=== PATIENT | male | born 1970 | race Caucasian/White ===

== ENCOUNTER 2017-11-27 12:19 | Emergency (ER) | payer OTHER ==
--- NOTE | 2017-11-27 13:28 | EDPHY ---
H & P Stated Complaint: l knee swelling/since mon/x[place] Time Seen by Provider: 11/27/17 13:26 HPI/ROS: HPI: This is a 47-year-old male who presents with Chief Complaint: l knee swelling/since mon/xrays/[place] Location: Left knee Quality: Swelling Duration: 5 days Signs and Symptoms: No bleeding, no radiation, no numbness, no weakness, no tingling, no incontinence, + decreased range of motion, + swelling, + pain, no fever Timing: Worsening Severity: Moderate Context: Patient presents with complaints of left knee swelling, decreased range of motion and pain that started Thursday. Thursday he used the treadmill without any difficulty or pain. Thursday he went for a walk with his . Thursday he woke up with constant, mild, aching generalized left knee pain with mild swelling. He is able to bear weight without any pain. Flexion increases his pain. History of gout controlled by diet and herbal supplement. Reports that this feels different than gout flare. Thursday he went to the urgent care and in [place]; x-rays performed and per patient did not show any fracture/ dislocation/significant degenerative changes. Patient reports that they attempted aspiration and it was unsuccessful. Denies fever/weakness/ paresthesias. Modifying Factors: See above Comment: ROS: see HPI Constitutional: No fever, no chills, no weight loss Eyes: No blurred vision Respiratory: No shortness of breath, no cough Cardiovascular: No chest pain Gastrointestinal: No nausea, no vomiting no diarrhea Genitourinary: No dysuria Extremities: No myalgias Neurologic: No weakness, no numbness Skin: No rashes Hematologic: No bruising, no bleeding MEDICAL/SURGICAL/SOCIAL HISTORY: Medical history: Gout. Does not take any regular medications. Surgical history: Denies Social history: . Employed. CONSTITUTIONAL: Polite and cooperative middle-aged white male, nontoxic in appearance, awake and alert, no obvious distress HEENT: Atraumatic and normocephalic. NECK: supple, no midline tenderness, flexion 45 degrees, extension 45 degrees, right and left lateral flexion 45 degrees. No meningismus. Cardiovascular: Normal S1/S2, regular rate, regular rhythm, without murmur rub or gallop. PULMONARY/CHEST: Symmetrical and nontender. no crepitus. Clear to auscultation bilaterally. Good air movement. No accessory muscle usage. ABDOMEN: Soft, nondistended, nontender, no ecchymosis. PELVIC: no pain with rocking; bilateral hips flexion 125 degrees, extension 30 degrees, with no pain internal rotation and no pain external rotation. BACK: No midline tenderness, no paraspinous spasm, deep tendon reflexes 2/2, no pain with straight leg raise, No foot drop. Achilles reflexes are equal bilaterally. Able to walk on heels and toes without difficulty. EXTREMITIES: 2/2 pulses, strength 5/5, left KNEE: Moderate suprapatellar effusion, Band-Aid noted over medial knee consistent with aspiration site; mild medial and lateral joint line tenderness, full extension to 180, flexion decreased to 40. No pain with varus and valgus exam. No pain with anterior drawer or posterior drawer test. Mild erythema noted over patella. No crepitus with extension. good light touch sensation. no deformities, no clubbing , no cyanosis or edema. NEUROLOGICAL: no focal neuro deficits. GCS 15. Light touch sensation intact. SKIN: Warm and dry, no erythema. no rash. Good capillary refill. Source: Patient, Family () Exam Limitations: No limitations - Personal History Current Tetanus/Diphtheria Vaccine: Yes - Medical/Surgical History Hx Asthma: No Hx Chronic Respiratory Disease: No Hx Diabetes: No Hx Cardiac Disease: No Hx Renal Disease: No Hx Cirrhosis: No Hx Alcoholism: No Hx HIV/AIDS: No Hx Splenectomy or Spleen Trauma: No Other PMH: denies - Social History Smoking Status: Never smoked Constitutional: Initial Vital Signs Temperature (C) 36.6 C 11/27/17 12:32 Heart Rate 82 11/27/17 12:32 Respiratory Rate 18 11/27/17 12:32 Blood Pressure 153/99 H 11/27/17 12:32 O2 Sat (%) 97 11/27/17 12:32 O2 Delivery Mode Room Air Allergies/Adverse Reactions: No Known Allergies Allergy (Unverified 11/27/17 12:31) Home Medications: Medication Instructions Recorded Percocet 5/325 (*) 11/27/17 oxyCODONE/APAP 5/325 [Percocet 1 - 2 tab PO Q4H PRN #10 tab 11/27/17 5/325 (*)] Medical Decision Making - Diagnostics Imaging Results: Imaging Impressions Lower Extremity MRI 11/27/17 13:54 Impression: 1. Horizontal longitudinal tear midbody and posterior horn medial meniscus with undersurface flap component at the posteromedial corner. Maceration and fraying of the anterior horn medial meniscus. 2. Large knee joint effusion. Results called to Genoveva Robles PA-C, at 3:15 PM. Procedures: Procedure: Arthrocentesis. After verbal informed consent was obtained explaining the risks including but not limited to infection and bleeding a arthrocentesis was performed on the left knee. The patient was prepped and draped in the usual sterile fashion. The joint was anesthetized with let topical. Approximately 125 cc of straw yellow synovial fluid was obtained. There were no complications. Sent for culture, crystal analysis. Clean sterile dressing applied. The procedure was performed by myself. Procedure: Splint placement. A left knee immobilizer was applied by the Emergency Room heavy truck technician. After application of the splint I returned and re-examined the patient. The splint was adequately immobilizing the joint and distal to the splint the patient's circulation and sensation was intact. ED Course/Re-evaluation: Vital signs reviewed upon arrival; stable MRI knee ordered Given Percocet x2 No signs of neurovascular compromise/tenting of skin/compartment syndrome/ extremities and joints examined above and below area of concern and are neurovascularly intact. 1417: Called by radiologist who reports that MRI of the knee shows massive joint effusion medial meniscus tear Decision to aspirate joint; let topical applied; 125 cc aspirated; sent for cultures Placed in left knee immobilizer. Patient already has crutches from prior visit urgent care. Ortho follow-up. This patient was seen under the supervision of my secondary supervising physician. I evaluated care for this patient independently. Discussed this patient with Dr. Chamberlain who did not see the patient. Differential Diagnosis: Knee pain [] including but not limited to fracture, ACL injury, contusion, muscular strain, and meniscus injury. - Data Points Medications Given: Discontinued Medications Oxycodone/Acetaminophen (Percocet 5/325) 2 tab PO EDNOW ONE Stop: 11/27/17 15:32 Last Admin: 11/27/17 15:34 Dose: 2 tab Tetracaine/Epinephrine/Lidocaine (Let Gel Topical) 1 ea TP EDNOW ONE Stop: 11/27/17 15:20 Last Admin: 11/27/17 15:34 Dose: 1 ea Departure - Departure Disposition: Home, Routine, Self-Care Clinical Impression: Knee effusion, left Tear of medial meniscus of knee joint Qualifiers: Tear current or old: current Encounter type: initial encounter Meniscus tear of knee type: unspecified type Laterality: left Qualified Code(s): S83.242A - Other tear of medial meniscus, current injury, left knee, initial encounter Condition: Good Instructions: Swollen Knee Joint (ED), Meniscus Tear (ED), Knee Arthroscopy (DC ) Additional Instructions: Keep the dressing dry and in place for 48 hours. After 48 hours, you may remove the dressing; wash the site daily with mild soap and water; then pat dry. Wear the knee immobilizer while out of bed. Use crutches to aid ambulation. Start with toe-touch weight-bearing. Take Tylenol 650 mg every 4 hours and/or Ibuprofen 600 mg every 8 hours with food as needed for pain. Use Percocet every 6 hours as needed for severe/break through pain. Do not use Tylenol and Percocet concomitantly. Apply ice for 30 minutes at a time; 2-3 times per day for the next 1-2 days. Follow up with Orthopedics in 7-10 days at which time they will evaluate and recommend with you if conservative management versus surgery is indicated. Please bring your left knee x-ray on disc to year orthopedic follow-up. Return to the ER immediately if you experience new or worsening pain, discoloration, numbness, tingling, or any other symptoms that concern you. Referrals: Trevor Ro MD [Medical Doctor] - As per Instructions Prescriptions: oxyCODONE/APAP 5/325 [Percocet 5/325 (*)] 1 - 2 tab PO Q4H PRN #10 tab PRN Reason: Pain, Severe
[2017-11-27] MEDS ORDERED: LET GEL TOPICAL 1 EA SYR TP ONE (15:19)
[2017-11-27] MEDS ORDERED: OXYCODONE/APAP 5/325 TAB PO ONE (15:31)
[2017-11-27] MEDS ORDERED: OXYCODONE/APAP 5/325 TAB ONE (15:32)
[2017-11-27 16:25] VITALS: BP 161/97
== END 2017-11-27 16:25 | disposition home or self-care (01) ==
PROC: 0S9D3ZZ Drainage of Left Knee Joint, Percutaneous Approach (ICD-10-PCS; principal; 2017-11-27)
DX: S83.242A Other tear of medial meniscus, current injury, left knee, initial encounter (principal); M25.462 Effusion, left knee; X58.XXXA Exposure to other specified factors, initial encounter; Y99.8 Other external cause status; Y93.01 Activity, walking, marching and hiking

== ENCOUNTER 2019-01-17 20:38 | Day surgery (SDC) | payer OTHER | END 2019-01-18 00:53 | disposition home or self-care (01) | LOC: FSGY 23:07 ==